=== PATIENT | male | born 1955 | race Caucasian/White ===

== ENCOUNTER → 2024-04-01 06:43 | Outpatient (REF) | payer MEDICARE, OTHER, SELFPAY | LOC: RAD 06:43 | PROVIDERS: ATTENDING PHYSICIAN Internal Medicine Interventional Cardiology; FAMILY PHYSICIAN Family Medicine | DX: I77.1 Stricture of artery (principal) | CPT/HCPCS: 93931 ==

== ENCOUNTER → 2024-09-02 07:35 | Outpatient (REF) | payer MEDICARE, OTHER, SELFPAY | LOC: RAD 07:35 | PROVIDERS: ATTENDING PHYSICIAN Surgery Vascular Surgery; FAMILY PHYSICIAN Internal Medicine Interventional Cardiology | DX: I65.23 Occlusion and stenosis of bilateral carotid arteries (principal); I71.40 Abdominal aortic aneurysm, without rupture, unspecified | CPT/HCPCS: 76770; 93880 ==

== ENCOUNTER → 2024-09-10 10:49 | Outpatient (REF) | payer MEDICARE, OTHER, SELFPAY ==
[2024-09-10 12:53] LABS: Blood Urea Nitrogen 15 mg/dl (9-20); Calcium 9.7 mg/dl (8.4-10.2); Carbon Dioxide 24 mmol/L (22-30); Chloride 107 mmol/L (98-107); Glucose 79 mg/dl (70-99); HDL Cholesterol 33 mg/dl; LDL Cholesterol, Calculated 52 mg/dl; Potassium 4.9 mmol/L (3.5-5.1); Sodium 147 mmol/L (135-145); Total Cholesterol 122 mg/dl (50-199); Triglyceride 187 mg/dl (10-149); Very Low Density Lipoprotein 37 mg/dl (0-30); eGFR > 60.00
== END ==
LOC: REG 10:49
PROVIDERS: ATTENDING PHYSICIAN Internal Medicine Interventional Cardiology; FAMILY PHYSICIAN Family Medicine; REFERRING PHYSICIAN Surgery Vascular Surgery
DX: I71.40 Abdominal aortic aneurysm, without rupture, unspecified (principal); E78.00 Pure hypercholesterolemia, unspecified
CPT/HCPCS: 36415; 80048; 80061

== ENCOUNTER → 2024-09-21 10:58 | Outpatient (REF) | payer MEDICARE, OTHER, SELFPAY | LOC: HWRAD 10:58 | PROVIDERS: ATTENDING PHYSICIAN Surgery Vascular Surgery; FAMILY PHYSICIAN Family Medicine; REFERRING PHYSICIAN Internal Medicine Interventional Cardiology | DX: I71.40 Abdominal aortic aneurysm, without rupture, unspecified (principal) | CPT/HCPCS: 74174; Q9967 ==

== ENCOUNTER 2024-10-11 06:08 | Inpatient (IN) | payer MEDICARE, OTHER, SELFPAY ==
[2024-10-07 10:01] VITALS: BMI 37.1
[2024-10-07 10:31] LABS: % Basophils 0.9 % (0-2); % Eosinophils 2.1 % (0-6); % Immature Granulocytes 0.3 % (0-0.5); % Lymphocytes 27.9 % (20.5-51.1); % Monocytes 8.7 % (1.7-9.3); % Neutrophils 60.1 % (42.2-75.2); Absolute Basophils 0.1 10^3/uL (0-0.2); Absolute Eosinophils 0.1 10^3/uL (0-0.7); Absolute Lymphocytes 1.6 10^3/uL (1.2-3.4); Absolute Monocytes 0.5 10^3/uL (0.1-0.6); Absolute Neutrophils 3.5 10^3/uL (1.4-6.5); Hematocrit 42.4 % (39.0-52.0); Hemoglobin 14.4 g/dL (13.0-18.0); Mean Corpuscular Hgb 33.4 pg (27.0-31.0); Mean Corpuscular Volume 98.4 fL (80.0-94.0); Mean Platelet Volume 9.7 fL (7.4-10.4); Nucleated Red Blood Cells % 0 % (-); Platelet Count 161 10^3/uL (130-400); Red Blood Cell Count 4.31 10^6/uL (4.70-6.10); Red Cell Dist. Width 13.2 % (11.5-14.5); White Blood Cell Count 5.8 10^3/uL (4.8-10.8)
[2024-10-07 10:47] LABS: INR 1.08; PT 14.5 Sec (11.4-14.6)
[2024-10-07 10:48] LABS: APTT 28.9 Sec (23.4-35.0)
[2024-10-07 11:57] LABS: Blood Urea Nitrogen 19 mg/dl (9-20); Calcium 9.3 mg/dl (8.4-10.2); Carbon Dioxide 27 mmol/L (22-30); Chloride 104 mmol/L (98-107); Estimated Creatinine Clearance 83 ml/min; Glucose 92 mg/dl (70-99); Potassium 3.9 mmol/L (3.5-5.1); Sodium 145 mmol/L (135-145); eGFR > 60.00
[2024-10-11] VITALS (8 sets, daily range): BP systolic 122–143; BP diastolic 71–94; BMI 36.8; BMI 36.6
[2024-10-11] MEDS: BACTROBAN NASAL 1 GRAM NASAL (07:02)
[2024-10-11] MEDS: PERIDEX 0.12% ORAL RINSE 15 ML PO (07:02)
[2024-10-11] MEDS: NSS 500 IV (07:03)
--- NOTE | 2024-10-11 07:23 | W.SUR.PREOP ---
Pre-Operative Surgical Note
-
I have examined this patient prior to the performance of the scheduled procedure.
The patient's condition is unchanged from the time of the current History and
Physical and the patient is able to undergo the scheduled procedure.
[2024-10-11 10:20] LABS: ACT-LR - POC 226 Seconds (116-155)
--- NOTE | 2024-10-11 11:15 | W.SUR.POST ---
Surgical Immediate Post Op
Note
Pre Op Diagnosis: type B1 endoleak
Post Op Diagnosis: same
Procedure Performed: endovascular Repair type 1B endoleak, attempted preservation left internal iliac artery with branch endoprosthesis (unsuccessful)
Primary Surgeon: Calvin
Assist: Mushtaq CARLISLE
Anesthesia: general
Estimated Blood Loss: 75cc
Fluids: see anesthesia flow sheet
Drains/Shunts: none
Specimens/Cultures: none
Doppler/Duplex/Angio (Y/N): Y
Complications: None
Operative Findings: Palpable DPs BL
[2024-10-11 11:36] LABS: Blood Urea Nitrogen 15 mg/dl (9-20); Calcium 8.5 mg/dl (8.4-10.2); Carbon Dioxide 21 mmol/L (22-30); Chloride 109 mmol/L (98-107); Estimated Creatinine Clearance 103 ml/min; Glucose 141 mg/dl (70-99); Potassium 4.1 mmol/L (3.5-5.1); Sodium 140 mmol/L (135-145); eGFR > 60.00
[2024-10-11 12:15] LABS: Hematocrit 37.5 % (39.0-52.0); Hemoglobin 13.5 g/dL (13.0-18.0); Mean Corpuscular Hgb 34.7 pg (27.0-31.0); Mean Corpuscular Volume 96.4 fL (80.0-94.0); Mean Platelet Volume 9.6 fL (7.4-10.4); Platelet Count 118 10^3/uL (130-400); Red Blood Cell Count 3.89 10^6/uL (4.70-6.10); Red Cell Dist. Width 13.2 % (11.5-14.5); White Blood Cell Count 8.2 10^3/uL (4.8-10.8)
[2024-10-11] MEDS: NSS 1000 IV (12:56)
--- NOTE | 2024-10-11 13:35 | PTCARENOTE ---
Pt admitted from PACU s/p EVAR revision-see surgeon's report. A&O. NSR with PACs noted then pt into A-flutter. A-line leveled and zeroed with CC032z/80s. DP pulses palp, PT dopplered. 2L NC with SpO2 95%. Tolerating clear liq. diet. Steen draining
clear yellow urine. Bilat groin site closed with perclose, dermabond and CISCO. Sites soft to palpation. NSS at 80cc/hr.
--- NOTE | 2024-10-11 14:23 | CON.INTV ---
Consultation
Consultation Request
Date/Time Consultation Requested: 10/11/24 10:53
Date/Time Consultation Performed: 10/11/24 14:24
Requesting Provider: Princess Chen
Performing Provider: Long Trevizo
Reason for Consultation: Post-operative management
Medical History
-
Chief Complaint: elective endovascular repair of AAA
History of Present Illness:
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
KJ compliant with CPAP, cholelithiasis, elevated LFTs, abnormal stress test, obesity presented to [facility] for elective endovascular repair of abdominal aortic/bilateral iliac artery aneurysms and type 1B endoleak . Patient underwent 5
years prior endovascular aneurysm repair with [place] excluder endoprosthesis (bifurcated modular) with concomitant right internal iliac artery coil embolization and extension iliac limb into external iliac artery on the right side. This was all done
to treat aorto iliac aneurysmal degeneration. On surveillance follow-up imaging patient noted to have large type Ib endoleak with reperfusion of aneurysm sacs and enlargement of the aneurysm sacs seen on 09/21/[address] Simpson discussed elective
surgical interventions and open vs endovascular options on 09/28/2024. After much discussion, patient agreed to elective repair. On 10/11/2024, pt presented to for surgery. Pt preoperatively given 2g ancef, sedated then intubated. Abdominal
aortic/bilateral iliac vein stents and type I endoleak repeair with with [place] excluder iliac limb endoprosthesis was successful however attempted exclusion with the iliac branch endoprosthesis placement was unsuccessful. There was percutaneous
bilateral common femoral artery closure. There were no complications. The patient brought to the ICU for further monitoring. Extubation was successful now satting well on room air. Peripheral pulses bilaterally intact. Femoral pulses intact. He is
AAox3 and only complaint is a bit of a sore throat after extubation.
PMHx: A-fib/flutter postop CABG 10/2021, CAD status post CABG x 5, hyperlipidemia, KJ intolerant of CPAP, cholelithiasis, elevated LFTs, abnormal stress test, AAA, bilateral iliac artery aneurysms, bilateral carotid artery stenosis, obesity,
ex-smoker (since age 12, 1ppd quit 2019), GERD
Past surgical hx: AAA and bilateral iliac artery aneurysm repair, coil embolization R internal iliac with extension of iliac limb into PEDRITO, cardiac cath 2016, 2020, 2021, CABG x 5 using NAM to LAD, SV to diag., SV to OM, seq. SV to distal RCA to
PDA (MPT -10/05/21)
Past Medical History
Past Medical History: Other (See above)
Past Surgical History: Other (See above)
Social History
Tobacco: Former Smoker (Quit 2019. Smoked age 12 until 2020 up to 1ppd)
Alcohol: Other (Used to go out a few times/week for a couple of drinks from age [age], recently minimal)
Drug: None
Personal:
Living: With Family
Family History
Family History: Other (Father 67 y/o from AAA - mother passed 89 y/o primary breast cancer, liver cancer, lung cancer - Brother bladder cancer - Sister liver and lung cancer )
Allergies / Home Medications
Allergies
Allergy/AdvReac Type Severity Reaction Status Date / Time
ticagrelor [From Brilinta] Allergy Shortness Verified 10/11/24 06:21
of Breath
Home Medications
�Medication �Instructions �Recorded �Confirmed �Last Taken �Type
esomeprazole magnesium 20 mg 20 mg PO DAILY Gastrointestinal 08/07/21 10/11/24 10/10/24 09:00 History
capsule,delayed release (Nexium issue
24HR)
apixaban 5 mg tablet (Eliquis) 5 mg PO BID Blood clot 03/26/22 10/11/24 10/08/24 21:00 History
prevention/tx
metoprolol tartrate 50 mg tablet 50 mg PO BID Heart 03/26/22 10/11/24 10/11/24 05:30 History
disease/condition
clopidogrel 75 mg tablet 75 mg PO DAILY #30 tabs 03/27/22 10/11/24 10/11/24 05:30 Rx
icosapent ethyl 1 gram capsule 2 g PO BID High Cholesterol 10/05/24 10/11/24 10/10/24 21:00 History
(Vascepa)
rosuvastatin 20 mg tablet (Crestor) 20 mg PO QPM High Cholesterol 10/05/24 10/11/24 10/10/24 21:00 History
Review of Systems
-
History Source: Patient
Constitutional: Fever (n), Fatigue (n) and Chills (n)
EENT: Sore Throat (After extubation)
Respiratory: No Symptoms
Cardiac: No Symptoms, Chest Pain (n), Diaphoresis (n) and Palpitations (n)
Abdomen/GI: No Symptoms
: No Symptoms
Skin: No Symptoms
Neuro: No Symptoms
Vitals / Labs / Diagnostic Testing
Vital Signs
Temp Pulse Resp BP Pulse Ox
98.6 F 95 25 134/91 94
10/11/24 13:00 10/11/24 14:00 10/11/24 14:00 10/11/24 12:45 10/11/24 14:00
Lab Data
10/11/24 11:16
10/11/24 11:16
Diagnostic Testing:
Physical Exam
-
HEENT: Normocephalic
Cardiovascular: S1/S2, Irregular Rhythm, Peripheral Edema (n) and Other (Peripheral pulses intact )
Respiratory: Clear
GI: Soft, Non Distended, Non Tender and Normal Bowel Sounds
Neurology: AO x 3
Skin: Warm, Dry and Good Color
General: Respiratory Distress (n), Comfortable, Pain (n), Fever (n) and Chills (n)
Assessment
-
69-year-old male with past medical history of AAA, bilateral iliac artery aneurysms, bilateral coronary artery stenosis, CAD s/p CABGx5, a.fib/flutter post CABG 10/2021, hyperlipidemia, KJ compliant with CPAP, cholelithiasis, elevated LFTs,
abnormal stress test, obesity presented to [facility] for elective endovascular repair of abdominal aortic/bilateral iliac artery aneurysms and type 1B endoleak. He is now in the ICU for post-operative management and monitoring now in
atrial flutter.
CPA: A-fib/flutter postop CABG 10/2021, CAD status post CABG x 5, hyperlipidemia, KJ intolerant of CPAP, cholelithiasis, elevated LFTs, abnormal stress test, AAA, bilateral iliac artery aneurysms, bilateral carotid artery stenosis, obesity,
ex-smoker (quit 2019), GERD
Impression:
#elective endovascular repair of abdominal aortic/bilateral iliac artery aneurysms and type 1B endoleak
#A. fib/flutter on chronic anti-coagulation with Eliquis
#KJ tolerant of sleep apnea
#Morbid obesity BMI 36.6
#CAD s/p CABG x5
#Former smoker 53 ppd smoking hx (ages 12 to 65)
#Bilateral carotid artery stenosis
#GERD
Plan:
Cardiovascular
-AAA with type 1b endoleak s/p endovascular repair
- Telemetry
- Neurovascular checks Q15min x 1 hour, then Q1H x 24 hours, then Q4H
- Keep MAP > 65
- 2g ancef pre-operatively
- Clopidogrel
- Pain management
- Monitor I&Os
- Repeat coag panel in am
- DVT ppx sc heparin q8
-Vascular team following
-Atrial flutter
-Currently in a.flutter
-Continue home metoprolol 50 BID
-Consider Cardizem gtt if rate consistently >110
-Restart Eliquis at discretion of surgical team
- hx KJ - CPAP overnight
- Keep SpO2 >90-94%
- Replete electrolytes with K>4, Mg>2
- GI ppx - hx GERD continue home esomeprazole
- Transfuse hg <7
- Transfuse ptl <20 unless active bleed then transfuse for <50
- Maintain euglycemia with goal BG 140-180
- DVT - SC heparin q8
- Advance diet as tolerated
--- NOTE | 2024-10-11 14:59 | OR.RPT ---
Addendum entered and electronically signed by aTe Simpson MD 10/11/24 15:00:
Fluoroscopy time 46.8 minutes, 1370 mGy, DAP 320.04.
Original Note:
Operative Report
Operative Report
PROCEDURE DATE: 10/11/2024
Preoperative diagnosis:
1. Abdominal aortic and bilateral iliac artery aneurysms, status post endovascular repair of aortic/iliac artery aneurysms with [place] excluder bifurcated modular endoprosthesis with coil embolization right internal iliac artery and extension graft
limb into external iliac artery.
2. Type Ib endoleak with nonapposition of left iliac limb and extensive pressurization again and enlargement of aneurysm sac.
Postoperative diagnosis: Same
Procedure:
1. Endovascular repair of abdominal aortic/bilateral iliac artery aneurysms and type 1B endoleak with [place] excluder iliac limb endoprosthesis. Attempted exclusion with iliac branch endoprosthesis placement, but unsuccessful.
2. Percutaneous bilateral common femoral artery closure.
3. Supervision and interpretation.
Surgeon: Calvin
Retail Sales Teammate: GENARO Landin required for all aspects of procedure including assistance with wire manipulation and management, device delivery, percutaneous suture facilitation.
Complications: None
Anesthesia: General
Indications for procedure:
Patient underwent 5 years prior endovascular aneurysm repair with [place] excluder endoprosthesis (bifurcated modular) with concomitant right internal iliac artery coil embolization and extension iliac limb into external iliac artery on the right side.
This was all done to treat aorto iliac aneurysmal degeneration. On surveillance follow-up imaging patient noted to have large type Ib endoleak with reperfusion of aneurysm sacs and enlargement of the aneurysm sacs.
Description of procedure:
Patient was identified brought to the operating room placed on the table in supine position. After the adequate administration of anesthesia and perioperative antibiotics he was prepped and draped in the standard surgical fashion. A standard
preoperative timeout was undertaken and everybody was in agreement the plan. Bilateral common femoral artery access was obtained under direct duplex ultrasound guidance. 6 [place] sheaths were placed over 0.035 inch wires.
Through the right sided sheath access I advanced a wire into the aorta and then a pigtail catheter. Power injection aortography demonstrated patent aortic endograft, with no evidence of type Ia endoleak. Patent bilateral iliac limbs were noted.
As noted on preop imaging the left common iliac limb had shortened somewhat and there was free-floating in the common iliac artery aneurysm sac on the left side with perfusion of the aneurysm sac is resolved. Based on this imaging I concerned about
shelf of plaque at the origin of the internal iliac artery and concern for stenosis. I was concerned that I would even be able to do a branched endoprosthesis graft. Therefore I obtained further imaging via catheter in the left common iliac artery
in different obliquities. This did confirm stenosis of the left internal iliac artery origin. However, I attempted using a rim catheter to cannulate the left internal iliac artery from the left sided access. And I was able to finally do so
although with some difficulty, and then I was able to pass a glide catheter through. Therefore I felt that there was enough of a origin that this would enable delivery of the iliac branch endoprosthesis internal iliac limb and I could proceed as
planned. However, I did note that the internal and external iliac origins were very close to one another and there was stenosis and angling of the origin of the internal iliac artery.
Therefore, at this point, small 1 cm incisions were made around the sheath entry sites bilaterally. Blunt dissection was undertaken with hemostats to facilitate percutaneous suture delivery. Next, using the ProGlide suture system, percutaneous
sutures were deployed at the 10:00 and 2 o'clock position bilaterally in the standard fashion. Suture strands were tagged outside the skin. We exchanged for 11 [place] sheaths bilaterally. Next using angled catheters, I guided wires into the
supraceliac aorta from bilateral access sites. I then exchanged for Amplatz wires and then exchanged my sheaths out for 16 [place] Hopewell dry seal up the left side, 12 [place] Hope[place] dry seal up the right side. The right sided 12 [place] Hope[place] dry seal
was a 45 cm sheath and was advanced into the visceral aorta. Next, I placed a snare catheter over the wire from the right sided 12 [place] sheath access into the supraceliac aorta. I then remove the wire and positioned the snare. I then we
punctured the 18 [place] dry seal and advanced and additional wire (Glidewire) into the aorta which I snared from the 12 [place] access. I pulled down and therefore had through and through access. Now initially I placed later tension on the through
and through wire access and advanced a 12 [place] sheath slightly forward allowing it to create a rather wide curvature radius to initiate curvature. Once this occurred, I then more tightly pulled tension on the through and through wire access and
pushed to advance the 12 [place] sheath down. As such I was able to advance it all the way down into the left common iliac artery. The dilator was then removed.
Next, from the left sided access I oriented and then loaded the iliac branch endoprosthesis (Hopewell [id number]). This was advanced over both wires with the through and through wire going through the internal iliac branch on the device in the standard
fashion. Having loaded on both wires I then advanced it up under fluoroscopy. I confirmed good positioning and orientation. Once I positioned it and was satisfied with its position (slightly above the quinault iliac bifurcation), I then released
the first deployment mechanism, thereby deploying the main body of the iliac branch endoprosthesis and the contralateral gate until it was open. Once this was completed, I reintroduced the dilator for the 12 [place] up and over sheath and advanced
that into the contralateral gate for the internal iliac limb. Next, I repunctured the 12 [place] Hope[place] dry seal sheath and advanced an additional floppy angled hydrophilic wire as well as a angled catheter. (Initially a glide catheter). However
despite multiple attempts I could not cannulate the internal iliac artery. I tried several different catheters and still could not. I noted on angiography that the iliac branch endoprosthesis device itself/external iliac limb portion, appeared to
be impinging on the origin of the internal iliac artery. The space was too crowded. In addition with the stenosis of the internal iliac artery made it very challenging. I tried multiple techniques using multiple catheters. I even tried advancing
an [place] sheath over the through and through wire so that I could advance it to the external iliac artery and then try to pull back and cannulate the internal iliac artery but I was unable to do so. The stenosis and the angulation and the
orientation of the iliac bifurcation proved to be challenging. Finally had to abort.
I then deployed the remainder of the external iliac limb of the iliac branch endoprosthesis and remove the delivery device. I noted on angiography, that the internal iliac origin was essentially occluded by the device. However I did try again
before having withdrawn the 12 [place] sheath back to the right iliac system to cannulate the internal iliac artery once the external iliac limb was fully deployed to see if that would facilitate, but it was a no go. Therefore, at this point I
withdrew my right sided 12 [place] sheath back to the right iliac system.
I now advanced a [place] excluder iliac limb endoprosthesis up to the flow divider on the left side (PLC [id number]). With sufficient overlap in the contralateral gate, I then deployed it. However, this did not reach into the external iliac artery.
Therefore had to place an additional iliac limb (PLC [id number]) that then advanced into the iliac branch endoprosthesis iliac limb. As such I was able to completely exclude the internal iliac artery as well as treat the endoleak.
Next, I used a Hopewell molding balloon to mold the overlap zones of the iliac limbs as well as the distal iliac seal. (External iliac artery). Completion power injection aortography as well as retrograde iliac angiography demonstrated good
positioning of the iliac limbs with no further evidence of type Ib endoleak. No evidence of type Ia endoleak. The graft was seated proximally nicely and had not moved at all. There was good filling of the renal arteries. On delayed imaging I
could see filling of the left internal iliac artery branches via collaterals. There also may have been a slow type Ib endoleak slightly hard to say. At this point I was satisfied.
Next I exchanged my pigtail catheter back for a Amplatz wire. Next, I sequentially removed the sheath while cinching down the percutaneous sutures. This was initially done on the left side and then on the right. Once hemostasis was noted the wire
was then withdrawn, the knot was tightened with a knot pusher. On the left side, there was still bleeding noted after I tightened the knot, and when I pulled the second knot to cinch it slightly, the suture actually snapped. Therefore, at this
point I had continued bleeding. I was able to put the 16 [place] Hopewell dry seal sheath back up. (Wire access had been maintained). We prepared another Pro-glide percutaneous suture. Next, manual pressure was applied, and the 16 [place] sheath was
withdrawn holding manual pressure. First, I tightened the remaining/1 working not using the knot pusher. I was able to push the knot further down and get a little bit better hemostasis once I did this but still was bleeding when pressure was
relieved. Now, over the Amplatz wire, we then advanced the Pro-glide percutaneous suture. And I was able to deploy this Pro-glide percutaneous suture without difficulty. And once I tightened this not, hemostasis was fully achieved. I then used a
knot pusher to firmly push down that not. I confirm the other knot was pushed down as well. I then locked the knots and then cut the suture strands. There was excellent pulsation still in the artery. Hemostasis was confirmed. I now tightened my
right sided percutaneous knots while removing the 12 [place] sheath and then the wire. Hemostasis was noted fully on that side. Good pulsation was also noted in the femoral artery. The small skin incisions were then closed with 4-0 Monocryl
subcuticular stitch and Dermabond was applied. Patient tolerated procedure well. He had palpable DP bilaterally upon completion.
[2024-10-11] MEDS: HEPARIN 5000 UNITS SC ×2 (16:30→22:37)
[2024-10-11] MEDS: LOPRESSOR 50 MG PO (16:58)
[2024-10-11] MEDS: CRESTOR 20 MG PO (16:58)
--- NOTE | 2024-10-11 17:00 | PTCARENOTE ---
HR now in a-flutter with sustained 150s. SBP 160-170s. Metoprolol 50mg given early as authorized by Dr. Mandel. Cardene started at 2.5mg/hr. SBP to 140s.
[2024-10-11] MEDS: CARDENE 200 IV (17:02)
--- NOTE | 2024-10-11 18:08 | PTCARENOTE ---
Cardene stopped with SBP 120s.
--- NOTE | 2024-10-11 20:30 | PTCARENOTE ---
Resumed care of pt this evening. Pt neurovascular checks unchanged since previous shift. B/L surgical groin sites are C/D/I. Pt denies pain at this time.
[2024-10-12] VITALS (7 sets, daily range): BP systolic 97–136; BP diastolic 71–91; PULSE 74; O2SAT 95; BMI 36.5
--- NOTE | 2024-10-12 | PTCARENOTE ---
Upon reassessment, neurovascular checks remain unchanged. Pt continues to be in A-flutter rhythm. Pt denies pain.
[2024-10-12] MEDS: NSS 1000 IV (00:18)
--- NOTE | 2024-10-12 04:30 | PTCARENOTE ---
Pt resting comfortably at this time.
[2024-10-12 05:59] LABS: Hematocrit 39.9 % (39.0-52.0); Hemoglobin 13.5 g/dL (13.0-18.0); Mean Corp Hgb Conc. 33.8 g/dL (33.0-37.0); Mean Corpuscular Hgb 32.9 pg (27.0-31.0); Mean Corpuscular Volume 97.3 fL (80.0-94.0); Mean Platelet Volume 9.6 fL (7.4-10.4); Platelet Count 143 10^3/uL (130-400); White Blood Cell Count 11.1 10^3/uL (4.8-10.8)
[2024-10-12 06:06] LABS: INR 1.09; PT 14.5 Sec (11.4-14.6)
[2024-10-12 06:07] LABS: APTT 27.4 Sec (23.4-35.0)
[2024-10-12 06:18] LABS: Blood Urea Nitrogen 13 mg/dl (9-20); Carbon Dioxide 22 mmol/L (22-30); Chloride 109 mmol/L (98-107); Estimated Creatinine Clearance 102 ml/min; Glucose 104 mg/dl (70-99); Potassium 3.8 mmol/L (3.5-5.1); Sodium 142 mmol/L (135-145); eGFR > 60.00
--- NOTE | 2024-10-12 08:03 | W.PN.VS ---
Addendum entered and electronically signed by Reynaldo Steen III, MD 10/12/24 10:37:
This patient was seen and examined with ORESTES Marino. I agree with the history and physical exam as well as the assessment and plan. I have the following additions:
Signed:
Reynaldo Steen III, MD
[facility]
[phone] (uauo)
Original Note:
Today's Communication / Plan
-
Seen and assessed with Dr. Steen
Assessment/Plan
-
POD 1 endovascular Repair type 1B endoleak, attempted preservation left internal iliac artery with branch endoprosthesis (unsuccessful)
Plan:
-DC A-line
-DC Celsa
-Out of bed/ambulate
-Physical therapy
-P.o. meds
-Increase diet
Subjective Data
-
Date of Service: October 12, 2024
Patient seen at bedside this a.m. with Dr. Steen. Patient offers no complaints at this time. No events overnight. Slept well.
Objective Data
-
Vital Signs
Temp Pulse Resp BP Pulse Ox
98.2 F 71 17 134/91 94
10/12/24 05:34 10/12/24 06:30 10/12/24 06:30 10/11/24 12:45 10/12/24 06:30
Intake and Output
10/11/24 10/12/24 10/13/24
06:59 06:59 06:59
Intake Total 1725 / 1725
Output Total 3231 / 3231
Balance -1506 / -1506
Intake:
IV fluids (Total) 1725 / 1725
NSS 200 / 200
Nss 1,000 ml @ 80 mls/hr IV . 1520 / 1520
[id number] ROCAEL Rx#:[id number]
cardene
Output:
Urine, Steen 3231 / 3231
Lab Results
10/12/24 05:43
10/12/24 05:43
Calcium 9.0 mg/dl (8.4-10.2) 10/12/24 05:43
Physical Exam
-
AAOx3
No tachypnea on room air
No tachycardia
Abdomen soft
Groin sites clean, dry, intact, soft, flat
Bilateral feet warm and pink
Palpable DPs bilaterally
[2024-10-12] MEDS: LOPRESSOR 50 MG PO (08:06)
[2024-10-12] MEDS: HEPARIN 5000 UNITS SC (08:06)
[2024-10-12] MEDS: PLAVIX 75 MG PO (08:06)
[2024-10-12] MEDS: PROTONIX 40 MG PO (08:06)
--- NOTE | 2024-10-12 08:25 | W.PN.INTV ---
Today's Communication / Plan
Recommendations
DC gibson and A-line
PT/OT
Advance diet
Likely downgrade today
Assessment
-
69-year-old male with past medical history of AAA, bilateral iliac artery aneurysms, bilateral coronary artery stenosis, CAD s/p CABGx5, a.fib/flutter post CABG 10/2021, hyperlipidemia, KJ compliant with CPAP, cholelithiasis, elevated LFTs,
abnormal stress test, obesity presented to [facility] for elective endovascular repair of abdominal aortic/bilateral iliac artery aneurysms and type 1B endoleak. He is now in the ICU for post-operative management and monitoring for atrial
flutter.
CPA: A-fib/flutter postop CABG 10/2021, CAD status post CABG x 5, hyperlipidemia, KJ intolerant of CPAP, cholelithiasis, elevated LFTs, abnormal stress test, AAA, bilateral iliac artery aneurysms, bilateral carotid artery stenosis, obesity,
ex-smoker (quit 2019), GERD
Impression:
#elective endovascular repair of abdominal aortic/bilateral iliac artery aneurysms and type 1B endoleak
#A. fib/flutter on chronic anti-coagulation with Eliquis
#KJ tolerant of sleep apnea
#Morbid obesity BMI 36.6
#CAD s/p CABG x5
#Former smoker 53 ppd smoking hx (ages 12 to 65)
#Bilateral carotid artery stenosis
#GERD
Plan:
Cardiovascular
-Endovascular Repair type 1B endoleak, attempted preservation left internal iliac artery with branch endoprosthesis (unsuccessful)
-POD 1
- Telemetry
- Neurovascular checks Q4H
- Keep MAP > 65
- 2g ancef pre-operatively
- Clopidogrel
- Pain management
- Monitor I&Os
- DVT ppx sc heparin q8
- DC A-line
- DC gibson
- Ambulate as able, PT/OT
-Vascular team following
-Atrial flutter
-Continue home metoprolol 50 BID
-Nicardipine gtt required briefly yesterday evening for elevated HR, then turned off - stable overnight
-Restart Eliquis at discretion of surgical team
- hx KJ - CPAP overnight
- Keep SpO2 >90-94%
- Replete electrolytes with K>4, Mg>2
- GI ppx - hx GERD continue home esomeprazole
- Transfuse hg <7
- Transfuse ptl <20 unless active bleed then transfuse for <50
- Maintain euglycemia with goal BG 140-180
- DVT - SC heparin q8
- Advance diet as tolerated
Subjective Dataa
Subjective Data
Date of Service:
Date of Service: October 12, 2024
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
Review of Systems
General: Fever (n), Chills (n), Satisfactory Appetite and Pain (n)
Cardiopulmonary: Dyspnea (n), Cough (n) and Chest Pain (n)
GI: Abdominal Pain (n), Nausea (n), Vomiting (n) and Diarrhea (n)
Neuro: Headache (n) and Dizziness (n)
Genitourinary: Gibson (n)
Objective Data
Data Reviewed
Vital Signs / I&O / Oxygen:
Vital Signs
Temp Pulse Resp BP Pulse Ox
98.2 F 71 17 134/91 94
10/12/24 05:34 10/12/24 06:30 10/12/24 06:30 10/11/24 12:45 10/12/24 06:30
Intake and Output
10/11/24 10/12/24 10/13/24
06:59 06:59 06:59
Intake Total 1725 / 1725
Output Total 3231 / 3231
Balance -1506 / -1506
SaO2 94
Nasal Cannula flow liters per 2
minute
Physical Exam
General: Comfortable
HEENT: Normocephalic
Cardiovascular: S1-S2 and Regular Rhythm
Respiratory: Clear
GI: Soft, Non Distended, Non Tender and Normal Bowel Sounds
Neurology: AO x 3
Skin: Warm and Other (Peripheral pulses intact)
Labs/Micro/Reports
Lab Data
10/12/24 05:43
10/12/24 05:43
Laboratory Results
10/12/24
05:43
PT 14.5
INR 1.09
APTT 27.4
--- NOTE | 2024-10-12 08:30 | PTCARENOTE ---
Assumed care of pt. Vascular team to bedside to discuss plans. A-line removed without issue, Steen removed, IVF stopped. Pt OOB to chair with standby assistance. Tolerated well. A-flutter continues with HR 60-90s.
--- NOTE | 2024-10-12 10:50 | CM ---
CM following re: discharge planning.
Discussed in Rounds, reviewed pt's chart, met with pt.
Pt is a 69 year old male, admitted with primary dx of POD 1 s/p endovascular Repair type 1B endoleak. Per MD pt most likely will be discharged home today. Pt is aware, expressed his agreement and he sated his spouse will transport home. IMM
reviewed, placed on chart, pt has a copy.
Pt reports he lives with spouse 2SH, 2 steps to enter, has no children. 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
PCP: Aquiles Sweet
Pharmacy: [facility]
D/C plan: home no needs. Spouse to transport.
--- NOTE | 2024-10-12 12:11 | PTCARENOTE ---
Pt tolerated OOB to chair for 2.5H. No asst device required. VSS. Returned to bed as requested. Assessment unchanged.
--- NOTE | 2024-10-12 14:00 | PTCARENOTE ---
Met due to void. IVs removed. Pt ambulated with PT-see note. Discharge instructions explained to pt and . Written instructions given to pt. Escorted to car without issue.
== END 2024-10-12 14:30 | disposition home or self-care (01) | DRG 269 ==
LOC: ICU 06:08
PROVIDERS: Nurse Practitioner; ADMITTING PHYSICIAN Surgery Vascular Surgery; CONSULT PHYSICIAN Internal Medicine Critical Care Medicine; FAMILY PHYSICIAN Family Medicine
PROC: B4101ZZ Fluoroscopy of Abdominal Aorta using Low Osmolar Contrast (ICD-10-PCS; 2024-10-11)
PROC: 04JY3ZZ Inspection of Lower Artery, Percutaneous Approach (ICD-10-PCS; 2024-10-11)
PROC: 04V03DZ Restriction of Abdominal Aorta with Intraluminal Device, Percutaneous Approach (ICD-10-PCS; 2024-10-11)
DX: T82.310A Breakdown (mechanical) of aortic (bifurcation) graft (replacement), initial encounter (principal); I48.92 Unspecified atrial flutter; Y71.2 Prosthetic and other implants, materials and accessory cardiovascular devices associated with adverse incidents; Y92.9 Unspecified place or not applicable; I72.3 Aneurysm of iliac artery; I70.8 Atherosclerosis of other arteries; K21.9 Gastro-esophageal reflux disease without esophagitis; I25.10 Atherosclerotic heart disease of native coronary artery without angina pectoris; E78.00 Pure hypercholesterolemia, unspecified; E66.01 Morbid (severe) obesity due to excess calories; G47.33 Obstructive sleep apnea (adult) (pediatric); I48.91 Unspecified atrial fibrillation; I65.23 Occlusion and stenosis of bilateral carotid arteries; T82.858A Stenosis of other vascular prosthetic devices, implants and grafts, initial encounter; Y65.8 Other specified misadventures during surgical and medical care; Y92.234 Operating room of hospital as the place of occurrence of the external cause; Z53.09 Procedure and treatment not carried out because of other contraindication; Z68.36 Body mass index [BMI] 36.0-36.9, adult; Z87.891 Personal history of nicotine dependence; Z95.1 Presence of aortocoronary bypass graft; Z80.0 Family history of malignant neoplasm of digestive organs; Z80.3 Family history of malignant neoplasm of breast; Z80.52 Family history of malignant neoplasm of bladder; Z80.1 Family history of malignant neoplasm of trachea, bronchus and lung; Z79.01 Long term (current) use of anticoagulants; Z79.02 Long term (current) use of antithrombotics/antiplatelets; Z86.79 Personal history of other diseases of the circulatory system
CPT/HCPCS: 34705; 34713; 36415; 71046; 80048; 85025; 85027; 85610; 85730; 86850; 86900; 86901; 93005; 97116; 97163; C1725; C1760; C1769; C1773; C1887; C1892; C1894; Q9967

== ENCOUNTER → 2024-11-11 11:00 | Outpatient (REF) | payer MEDICARE, OTHER, SELFPAY ==
[2024-11-11 13:13] LABS: Blood Urea Nitrogen 14 mg/dl (9-20); Calcium 9.2 mg/dl (8.4-10.2); Carbon Dioxide 27 mmol/L (22-30); Chloride 102 mmol/L (98-107); Glucose 86 mg/dl (70-99); Potassium 4.3 mmol/L (3.5-5.1); Sodium 140 mmol/L (135-145); eGFR > 60.00
== END ==
LOC: REG 11:00
PROVIDERS: ATTENDING PHYSICIAN Physician Assistant; FAMILY PHYSICIAN Family Medicine
DX: I71.40 Abdominal aortic aneurysm, without rupture, unspecified (principal); Z48.89 Encounter for other specified surgical aftercare
CPT/HCPCS: 36415; 80048

== ENCOUNTER → 2024-11-19 07:47 | Outpatient (REF) | payer MEDICARE, OTHER, SELFPAY | LOC: RAD 07:47 | PROVIDERS: ATTENDING PHYSICIAN Physician Assistant; FAMILY PHYSICIAN Family Medicine | DX: I71.40 Abdominal aortic aneurysm, without rupture, unspecified (principal) | CPT/HCPCS: 74174; Q9967 ==

== ENCOUNTER → 2025-03-07 08:20 | Outpatient (REF) | payer MEDICARE, OTHER, SELFPAY ==
[2025-03-07 09:50] LABS: % Basophils 0.7 % (0-2); % Eosinophils 2.8 % (0-6); % Immature Granulocytes 0.2 % (0-0.5); % Monocytes 9.9 % (1.7-9.3); % Neutrophils 53.4 % (42.2-75.2); Absolute Eosinophils 0.2 10^3/uL (0-0.7); Absolute Monocytes 0.6 10^3/uL (0.1-0.6); Absolute Neutrophils 3.2 10^3/uL (1.4-6.5); Hematocrit 43.8 % (39.0-52.0); Mean Corp Hgb Conc. 34.2 g/dL (33.0-37.0); Mean Corpuscular Hgb 33.4 pg (27.0-31.0); Mean Corpuscular Volume 97.6 fL (80.0-94.0); Mean Platelet Volume 9.8 fL (7.4-10.4); Nucleated Red Blood Cells % 0 % (-); Platelet Count 172 10^3/uL (130-400); Red Blood Cell Count 4.49 10^6/uL (4.70-6.10); Red Cell Dist. Width 13.4 % (11.5-14.5); White Blood Cell Count 6.1 10^3/uL (4.8-10.8)
[2025-03-07 10:00] LABS: ALT (SGPT) 22 U/L (0-50); AST (SGOT) 22 U/L (17-59); Albumin 4.4 g/dl (3.5-5.0); Alkaline Phosphatase 71 U/L (38-126); Blood Urea Nitrogen 14 mg/dl (9-20); Calcium 9.7 mg/dl (8.4-10.2); Carbon Dioxide 27 mmol/L (22-30); Chloride 107 mmol/L (98-107); Glucose 109 mg/dl (70-99); HDL Cholesterol 29 mg/dl; LDL Cholesterol, Calculated 47 mg/dl; Potassium 5.1 mmol/L (3.5-5.1); Sodium 145 mmol/L (135-145); Total Bilirubin 0.8 mg/dl (0.2-1.3); Total Cholesterol 113 mg/dl (50-199); Total Protein 7.2 g/dl (6.3-8.2); Triglyceride 188 mg/dl (10-149); Very Low Density Lipoprotein 37 mg/dl (0-30); eGFR > 60.00
[2025-03-07 10:30] LABS: TSH Reflex To Free T4 1.81 uIU/ml (0.47-4.68)
== END ==
LOC: REG 08:20
PROVIDERS: ATTENDING PHYSICIAN Internal Medicine Interventional Cardiology; FAMILY PHYSICIAN Family Medicine
DX: E78.00 Pure hypercholesterolemia, unspecified (principal); R06.02 Shortness of breath; R79.89 Other specified abnormal findings of blood chemistry
CPT/HCPCS: 36415; 80053; 80061; 84443; 85025

== ENCOUNTER → 2025-05-26 08:07 | Outpatient (REF) | payer MEDICARE, OTHER, SELFPAY | LOC: RAD 08:07 | PROVIDERS: ATTENDING PHYSICIAN Surgery Vascular Surgery; FAMILY PHYSICIAN Family Medicine | DX: I71.40 Abdominal aortic aneurysm, without rupture, unspecified (principal); I65.23 Occlusion and stenosis of bilateral carotid arteries | CPT/HCPCS: 76770; 93880 ==

== ENCOUNTER 2025-10-12 06:29 | Day surgery (SDC) | payer MEDICARE, OTHER, SELFPAY | END 2025-10-12 09:10 | disposition home or self-care (01) | LOC: CATH 06:29 | PROVIDERS: ATTENDING PHYSICIAN Internal Medicine Cardiovascular Disease; FAMILY PHYSICIAN Family Medicine; OTHER PHYSICIAN Internal Medicine Interventional Cardiology | DX: I08.3 Combined rheumatic disorders of mitral, aortic and tricuspid valves (principal); I70.0 Atherosclerosis of aorta; I77.810 Thoracic aortic ectasia; Z79.82 Long term (current) use of aspirin; Z79.899 Other long term (current) drug therapy; Z87.891 Personal history of nicotine dependence; E78.00 Pure hypercholesterolemia, unspecified | CPT/HCPCS: 93312; 93320; 93325 ==